=== PATIENT | male | born 2000 | race Hispanic/Latino ===

== ENCOUNTER 2021-09-12 18:41 | Emergency (ER) | payer BC, OTHER ==
[2021-09-12 19:41] LABS: Urine Blood Negative (Negative); Urine Glucose Negative (Negative); Urine Protein Trace (Negative); Urine Specific Gravity >=1.030 (1.005-1.030); Urine pH 5.5 (5.0-7.0)
[2021-09-12] MEDS ORDERED: NA CHLORIDE 0.9% 1,000 ML ONE ×2 (19:42→20:40)
[2021-09-12 19:53] LABS: Absolute Lymphocytes (CBC) 1.8 K/uL (0.7-4.9); Hematocrit 54.4 % (39.6-49.0); Lymphocytes % 16.2 % (15.3-44.8); MCV 88.8 fL (80-100); MPV 8.5 fL (7.6-11.3); RBC Red Blood Cell Count 6.12 M/uL (4.33-5.43)
--- NOTE | 2021-09-12 22:28 | EDPHYS ---
Physician Documentation [facility] Name: George Silva Age: 21 yrs Sex: Male : 2000 Arrival Date: 09/12/2021 Time: 18:44 Bed 5 Private MD: ED Physician Reginaldo Akhtar HPI: 09/12 19:45 The patient presents with lightheadedness. Onset: The symptoms/episode began/occurred kb today. Context: occurred outdoors, occurred while the patient was working, just prior to the episode the patient experienced no apparent symptoms. Modifying factors: The symptoms are alleviated by nothing, the symptoms are aggravated by nothing. Associated signs and symptoms: Pertinent positives: nausea. Severity of symptoms: At their worst the symptoms were moderate in the emergency department the symptoms are unchanged. Patient's baseline: Neuro: alert and fully oriented, Motor: no deficits, Ambulation: walks without assistance, Speech: normal. The patient has not experienced similar symptoms in the past. The patient has not recently seen a physician. 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 Reports headache, lightheadedness, nausea and muscle cramps. 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 - Social history:: Smoking status: Patient denies any tobacco usage or history of. ROS: 19:43 Constitutional: Negative for fever, chills, and weight loss. kb 19:43 Abdomen/GI: Positive for nausea, Negative for abdominal pain, vomiting, diarrhea. 19:43 MS/extremity: Positive for muscle cramps. 19:43 Neuro: Positive for headache, lightheadedness. 19:43 All other systems are negative. Exam: 19:45 Constitutional: This is a well developed, well nourished patient who is awake, alert, kb and in no acute distress. Head/Face: Normocephalic, atraumatic. Eyes: Pupils equal round and reactive to light, extra-ocular motions intact. Lids and lashes normal. Conjunctiva and sclera are non-icteric and not injected. Cornea within normal limits. Periorbital areas with no swelling, redness, or edema. ENT: Moist Mucous membranes Cardiovascular: Regular rate and rhythm with a normal S1 and S2. No gallops, murmurs, or rubs. No pulse deficits. Respiratory: Respirations even and unlabored. No increased work of breathing. Talking in full sentences Abdomen/GI: Soft, non-tender. No distention Skin: Warm, dry with normal turgor. Normal color. MS/ Extremity: Pulses equal, no cyanosis. Neurovascular intact. Full, normal range of motion. Neuro: Awake and alert, GCS 15, oriented to person, place, time, and situation. Moves all extremities. Normal gait. Psych: Awake, alert, with orientation to person, place and time. Behavior, mood, and affect are within normal limits. 19:54 ECG was reviewed by the Attending Physician. kb Vital Signs: 18:45 BP 144 / 85; Pulse 91; Resp 17; Temp 98.8; Pulse Ox 95% ; Weight 76.2 kg; Height 5 ft. ap3 8 in. (172.72 cm); 19:55 BP 137 / 82; Pulse 81; Resp 18 S; Pulse Ox 99% on R/A; as6 21:10 BP 129 / 78; Pulse 86; Resp 18 S; Pulse Ox 100% on R/A; as6 22:28 BP 123 / 73; Pulse 83; Resp 18 S; Pulse Ox 100% on R/A; as6 18:45 Body Mass Index 25.54 (76.20 kg, 172.72 cm) ap3 MDM: 18:48 Patient medically screened. kb 19:44 Data reviewed: vital signs, nurses notes. Data interpreted: Pulse oximetry: on room air kb is 95 %. Interpretation: normal. Transition of care: After a detail discussion of the patient's case, care is transferred to Reginaldo Akhtar MD. 09/12 18:49 Order name: CBC with Diff; Complete Time: 19:55 kb 09/12 18:49 Order name: Basic Metabolic Panel; Complete Time: 20:09 kb 09/12 18:49 Order name: CK; Complete Time: 20:09 kb 09/12 19:42 Order name: Urine Dipstick-Ancillary; Complete Time: 19:43 EDMS 09/12 18:49 Order name: IV Start; Complete Time: 19:44 kb 09/12 18:49 Order name: Urine Dipstick-Ancillary (obtain specimen); Complete Time: 19:40 kb 09/12 19:43 Order name: EKG; Complete Time: 19:43 kb 09/12 19:43 Order name: EKG - Nurse/Tech; Complete Time: 19:55 kb EC:54 Rate is 80 beats/min. Rhythm is regular. QRS Chauncey is Normal. RI interval is normal at kb 148 msec. QRS interval is normal at 106 msec. QT interval is normal at 358 msec. Administered Medications: 19:44 Drug: NS 0.9% 1000 ml Route: IV; Rate: 1000 ml; Site: right antecubital; kd3 20:35 Follow up: Response: No adverse reaction; IV Status: Completed infusion; IV Intake: as6 1000ml 22:07 Follow up: Response: No adverse reaction; IV Status: Completed infusion kd3 20:34 Drug: NS 0.9% 1000 ml Route: IV; Rate: 1000 ml; Site: right antecubital; as6 22:07 Follow up: Response: No adverse reaction; IV Status: Completed infusion kd3 Disposition: 22:26 Co-signature as Attending Physician, Reginaldo Akhtar MD. [facility] Disposition Summary: 09/12/21 22:27 Discharge Ordered Location: Home [facility] Problem: new 7 Symptoms: have improved mh7 Condition: Stable 7 Diagnosis - Heat exhaustion, unspecified mh7 - Dehydration 7 Followup: 7 - With: Private Physician - When: 1 - 2 days - Reason: Worsening of condition, Recheck today's complaints, Continuance of care, Re-evaluation by your physician Discharge Instructions: - Discharge Summary Sheet 7 - Heat Exhaustion 7 - Dehydration, Adult, [id number] 7 - Preventing Heat Exhaustion, Adult [facility] Forms: - Medication Reconciliation Form 7 - Thank You Letter 7 - Antibiotic Education 7 - Prescription Opioid Use [facility] Signatures: Dispatcher [employer] Dena Goldsmith, KAUSHIK-C CO DIRECTOR-Nelda Mccartney RN RN Reginaldo Grace MD MD 7 Stephon Garcia RN RN as6 Candelaria Shen RN RN kd3 Alyson Fairbanks PA PA sb3
--- NOTE | 2021-09-12 22:28 | ER ---
Nurse's Notes [facility] Name: George Silva Age: 21 yrs Sex: Male : 2000 Arrival Date: 09/12/2021 Time: 18:44 Bed 5 Private MD: Diagnosis: Heat exhaustion, unspecified;Dehydration Presentation: 09/12 18:45 Chief complaint: Patient states: his whole body is cramping (feet, calves, back, arms, ap3 hips), he has been outside pouring asphalt for work. Coronavirus screen: At this time, the client does not indicate any symptoms associated with coronavirus-19. Ebola Screen: No symptoms or risks identified at this time. Initial Sepsis Screen: Does the patient meet any 2 criteria? No. Patient's initial sepsis screen is negative. Does the patient have a suspected source of infection? No. Patient's initial sepsis screen is negative. Risk Assessment: Do you want to hurt yourself or someone else? Patient reports no desire to harm self or others. Onset of symptoms was September 12, 2021. 18:45 Method Of Arrival: Ambulatory ap3 18:45 Acuity: ELIEZER 3 ap3 Triage Assessment: 18:48 General: Appears in no apparent distress. Behavior is calm, cooperative. Pain: ap3 Complains of pain in back, buttocks, abdomen, right arm, left arm, right leg and left leg Quality of pain is described as crampy. Neuro: Level of Consciousness is awake, alert, obeys commands, Oriented to person, place, time, Speech is normal. Cardiovascular: Patient's skin is warm and dry. Respiratory: Airway is patent Respiratory effort is even, unlabored. GI: Reports nausea, Patient currently denies diarrhea, vomiting. Derm: No signs and/or symptoms reported regarding the dermatologic system. 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 - Social history:: Smoking status: Patient denies any tobacco usage or history of. Screenin:49 Abuse screen: Denies threats or abuse. Nutritional screening: No deficits noted. ap3 Tuberculosis screening: No symptoms or risk factors identified. 19:56 Fall Risk None identified. as6 Assessment: 19:56 Reassessment: Patient appears in no apparent distress at this time. Patient and/or as6 family updated on plan of care and expected duration. Pain level reassessed. Patient is alert, oriented x 3, equal unlabored respirations, skin warm/dry/pink. 21:10 Reassessment: Patient appears in no apparent distress at this time. as6 Vital Signs: 18:45 BP 144 / 85; Pulse 91; Resp 17; Temp 98.8; Pulse Ox 95% ; Weight 76.2 kg; Height 5 ft. ap3 8 in. (172.72 cm); 19:55 BP 137 / 82; Pulse 81; Resp 18 S; Pulse Ox 99% on R/A; as6 21:10 BP 129 / 78; Pulse 86; Resp 18 S; Pulse Ox 100% on R/A; as6 22:28 BP 123 / 73; Pulse 83; Resp 18 S; Pulse Ox 100% on R/A; as6 18:45 Body Mass Index 25.54 (76.20 kg, 172.72 cm) ap3 ED Course: 18:44 Patient arrived in ED. as 18:48 Triage completed. ap3 18:48 Dena Martinez FNP-C is PHCP. kb 18:48 Colin Ramirez MD is Attending Physician. kb 18:49 Arm band placed on right wrist. ap3 19:30 Stephon Garcia RN is Primary Nurse. as6 19:43 Inserted saline lock: 18 gauge in right antecubital area, using aseptic technique. aa9 Blood collected. 19:46 Attending Physician role handed off by Colin Ramirez MD kb 19:46 Reginaldo Akhtar MD is Attending Physician. kb 19:46 Dena Martinez FNP-C is PHCP. kb 19:56 Bed in low position. Call light in reach. Side rails up X 1. Adult w/ patient. Pulse ox as6 on. NIBP on. Warm blanket given. 22:28 No provider procedures requiring assistance completed. IV discontinued, intact, as6 bleeding controlled, No redness/swelling at site. Pressure dressing applied. Administered Medications: 19:44 Drug: NS 0.9% 1000 ml Route: IV; Rate: 1000 ml; Site: right antecubital; kd3 20:35 Follow up: Response: No adverse reaction; IV Status: Completed infusion; IV Intake: as6 1000ml 22:07 Follow up: Response: No adverse reaction; IV Status: Completed infusion kd3 20:34 Drug: NS 0.9% 1000 ml Route: IV; Rate: 1000 ml; Site: right antecubital; as6 22:07 Follow up: Response: No adverse reaction; IV Status: Completed infusion kd3 Medication: 21:10 VIS not applicable for this client. as6 Intake: 20:35 IV: 1000ml; Total: 1000ml. as6 Outcome: 22:27 Discharge ordered by . mh7 22:35 Discharged to home ambulatory, with family. as6 22:35 Condition: stable 22:35 Discharge instructions given to patient, Instructed on discharge instructions, follow up and referral plans. Demonstrated understanding of instructions, follow-up care. 22:35 Patient left the ED. as6 Signatures: Dean Martinez, CHIEF COMMUNICATIONS OFFICER-C CHIEF COMMUNICATIONS OFFICER-Shirley Berry Amanda, RN RN asia3 Reginaldo Akhtar MD MD 7 Stephon Garcia RN RN as6 Candelaria Shen RN RN kd3 Rachel Monge, RN RN aa9
[2021-09-12 23:27] VITALS: TEMP 98.8
[2021-09-12 23:31] VITALS: O2SAT 100
[2021-09-12 23:33] VITALS: BP 123/73
--- NOTE | 2021-09-13 07:50 | EKG ---
Test Date: 2021-09-12 Test Time: 19:53:55 Ethanol Quality Leader: MEASUREMENT RESULTS: Intervals: Rate: 80 NE: 148 QRSD: 106 QT: 358 QTc: 412 [place]: P: 43 NE: 148 QRS: 93 T: 33 INTERPRETIVE STATEMENTS: Normal sinus rhythm Incomplete right bundle branch block Possible Right ventricular hypertrophy Abnormal ECG No previous ECG available for comparison Electronically Signed On 09-13-21 07:48:18 CDT by Nguyễn Peoples
== END 2021-09-12 22:35 | disposition home or self-care (01) ==
LOC: ER 18:41
DX: T67.5XXA Heat exhaustion, unspecified, initial encounter (principal); E86.0 Dehydration
CPT/HCPCS: 96361; 93005; 85025; 80048; 36415; 82550; 81003; 96360; 99284; J7030 ×2